=== PATIENT | female | born 1985 | race Hispanic/Latino ===

== ENCOUNTER 2019-06-17 08:58 | Day surgery (SDC) | payer OTHER ==
[2019-06-17 10:51] VITALS: BMI 47.2
--- NOTE | 2019-06-17 11:23 | ULT ---
US Biophysical Profile History: Twin gestation Comparison: Ultrasound biophysical profile May 2019 Findings: Biophysical profile score is 8/8 for both twins. Impression: Biophysical profile score of 8/8 for both twins. Heart rate is confirmed of both twins.
[2019-06-17] MEDS ORDERED: hydrALAZINE 20 MG/ML VIAL SLOW IVP PRN (11:24)
--- NOTE | 2019-06-17 11:40 | PDOC.EVN ---
Event Note - Event Note Event Note: PT with iup 35wks with di di twins with gestational dm controlled on medication here for scheduled bpp nst. NST A: base line 140s with mod ltv no decels no [id number]---jeiiooreigt nst B : base line 140s with mod ltv +accels 15X15 and neg accels and neg decels----reactive nst vitals: 101/63 P100 SAt 99% ra and RR20 NAD questions answered BPP reported 02/28 for both PT discharged home. Pt has f/u with Dr Wilson 06/24
[2019-06-17] MEDS ORDERED: FLU VACC QS2019-20(6MOS UP)/PF 60 MCG/0.5 ML SYRINGE IM ONE (11:45)
== END 2019-06-17 11:25 | disposition home or self-care (01) ==
LOC: L&D/OP 08:58
PROVIDERS: ATTEND Family Medicine
DX: O36.8331 Maternal care for abnormalities of the fetal heart rate or rhythm, third trimester, fetus 1 (principal); O24.414 Gestational diabetes mellitus in pregnancy, insulin controlled; O30.043 Twin pregnancy, dichorionic/diamniotic, third trimester; Z79.4 Long term (current) use of insulin; Z3A.35 35 weeks gestation of pregnancy
CPT/HCPCS: 59025; 76819; 99285

== ENCOUNTER 2019-06-21 09:07 | Day surgery (SDC) | payer OTHER ==
[2019-06-21 10:12] VITALS: BMI 47.2
--- NOTE | 2019-06-21 13:44 | ULT ---
OB ULTRASOUND: INDICATION: Gestational twins. Assess status. FINDINGS: Baby A is the presumed fetus and is transverse lie with head to the maternal left. Fetus A has a pos terior placenta and a heart rate recorded at 150 b.p.m. Fetus B is a variable lie. There is an anterior placenta. Fetus B heart rate is 135 b.p.m. Fetus A biophysical profile is 8/8. Fetus B biophysical profile is 8/8. Amniotic fluid volume: Membranes are identifiec consistent with a diamnotic dichorionic. The technologist states that the a mniotic fluid volume for each fetus appeared within normal range. Umbilical artery Doppler Twin A: At placenta resistive index 0.62 Mid cord resistive index 0.82 At fetus resistive index 0.80 Umbilical artery Doppler Twin B: At placenta resistive index 0.73 Mid cord resistive index 0.65 At fetus resistive index 0.66 Biometry and age measurements were not obtained. IMPRESSION: 1. Biophysical profile of each fetus is 8/8. 2. Umbilical artery Doppler measurements are noted above for each fetus. POS: OFF
--- NOTE | 2019-06-21 15:40 | PRG ---
DATE OF SERVICE: 06/21/2019 SUBJECTIVE: The patient is a 34-year-old female with an intrauterine at 35 weeks and 5 days with a di-di twin gestation, followed by Dr. Rafa Glaser. She was scheduled to appear for routine NST and BPP due to twin gestation. The patient's BPP was 8/8 for both baby A and baby B. heart tracing shows the fetus A with a baseline in the 140s with moderate long-term variability, positive 15 x 15 accelerations and baby B 130s with moderate long-term variability, positive 15 x 15 accelerations. Tocometer not showing any evidence of contractions. ASSESSMENT AND PLAN: The patient is a 34-year-old with a twin gestation at 34 weeks and 5 days with both baby A and baby B having reactive NSTs. The patient has been discharged home to follow up with her primary OB as scheduled. Job ID: [id number]
== END 2019-06-21 14:30 | disposition home or self-care (01) ==
LOC: L&D/OP 09:07
PROVIDERS: ATTEND Family Medicine
DX: O30.043 Twin pregnancy, dichorionic/diamniotic, third trimester (principal); Z3A.35 35 weeks gestation of pregnancy
CPT/HCPCS: 59025; 76815; 76819; 93975; 99282

== ENCOUNTER 2019-06-28 13:51 | Day surgery (SDC) | payer OTHER ==
[2019-06-28 14:38] VITALS: BP 125/79; TEMP 98.6; BMI 49.1
[2019-06-28] MEDS ORDERED: Betamet Acet/Betamet Na Ph 30 MG/5 ML VIAL ONE (14:48)
--- NOTE | 2019-06-28 16:11 | ULT ---
US Biophysical Profile: 06/28/2019 3:14 PM CLINICAL HISTORY: Twin intrauterine . Evaluate biophysical profile of both fetuses.. COMPARISON: None. FINDINGS: Fetus A: heart rate: 150 bpm. Biophysical profile: 8 of 8. The umbilical artery shows maintenance of diastolic flow within normal systolic to diastolic ratio. Fetus B: heart rate: 135 bpm. Biophysical profile: 8 of 8. The umbilical artery shows maintenance of diastolic flow within normal systolic to diastolic ratio. IMPRESSION: 1. Normal biophysical profile of both fetuses. 2. Normal umbilical artery ultrasound of both fetuses.
== END 2019-06-28 16:10 | disposition home or self-care (01) ==
LOC: L&D/OP 13:51
PROVIDERS: ATTEND Family Medicine
DX: O36.8392 Maternal care for abnormalities of the fetal heart rate or rhythm, unspecified trimester, fetus 2 (principal); O30.009 Twin pregnancy, unspecified number of placenta and unspecified number of amniotic sacs, unspecified trimester; Z3A.00 Weeks of gestation of pregnancy not specified
CPT/HCPCS: 76819; 93975; J0702

== ENCOUNTER 2019-06-29 13:44 | Day surgery (SDC) | payer OTHER ==
[2019-06-29] MEDS ORDERED: Betamet Acet/Betamet Na Ph 30 MG/5 ML VIAL ONE (13:49)
== END 2019-06-29 14:10 | disposition home health service (06) ==
LOC: L&D/OP 13:44
PROVIDERS: ATTEND Family Medicine
DX: Z29.8 Encounter for other specified prophylactic measures (principal); O30.009 Twin pregnancy, unspecified number of placenta and unspecified number of amniotic sacs, unspecified trimester; Z3A.00 Weeks of gestation of pregnancy not specified
CPT/HCPCS: J0702

== ENCOUNTER 2019-07-01 07:26 | Inpatient (IN) | payer OTHER ==
[2019-07-01] MEDS ORDERED: Ondansetron HCl/PF 4 MG/2 ML Vial IVP PRN (08:11)
[2019-07-01] MEDS ORDERED: Promethazine HCl 25 MG/ML VIAL IM PRN ×4 (08:11→15:29)
[2019-07-01] MEDS ORDERED: Ketorolac Tromethamine 30 MG/ML VIAL IVP PRN (08:11)
[2019-07-01] MEDS ORDERED: Naloxone HCl 0.4 mg/ml Vial IVP PRN ×2 (08:11)
[2019-07-01] MEDS ORDERED: Ondansetron PF 4 MG/2 ML Vial IVP PRN ×3 (08:11→15:29)
[2019-07-01] MEDS ORDERED: Promethazine HCl 25 MG SUPP PR PRN (08:11)
[2019-07-01] MEDS ORDERED: diphenhydrAMINE 50 MG/ML VIAL IVP PRN (08:11)
[2019-07-01] MEDS ORDERED: Promethazine HCl 25 MG/ML VIAL SLOW IVP PRN (08:11)
[2019-07-01] MEDS ORDERED: Naloxone HCl 0.4 mg/ml Vial IV PRN (08:11)
[2019-07-01] MEDS ORDERED: Communication Order-Pharmacy FS SCH (08:15)
[2019-07-01 08:23] VITALS: BMI 49.1
[2019-07-01] MEDS ORDERED: hydrALAZINE 20 MG/ML VIAL SLOW IVP PRN ×2 (09:01→15:29)
[2019-07-01] MEDS ORDERED: Azithromycin 500 MG in Sodium Chloride 0.9% 250 ML 250 ML IVPB SCH (09:01)
[2019-07-01] MEDS ORDERED: Bicitra 30 ML UDCUP PO SCH (09:01)
[2019-07-01] MEDS: Lactated Ringer's 1,000 ML IV SCH ×3 (09:28→18:45)
[2019-07-01 09:31] LABS: Hemoglobin 10.9 g/dL (12.0-16.0); Mean Corpuscular HGB CONC 32.4 g/dL (32.0-36.0); Mean Corpuscular Hemoglobin 27.9 pg (27.0-31.0); Mean Corpuscular Volume 86.1 fL (78.0-98.0); Mean Platelet Volume 10.4 fL (7.4-10.4); Platelet Count 222 thou/uL (130-400); RBC Distribution Width 13.6 % (11.5-14.5); Red Blood Cell (RBC) Count 3.92 mill/uL (4.20-5.40); White Blood Cell (WBC) Count 9.1 thou/uL (4.8-10.8)
[2019-07-01] MEDS ORDERED: MORPHINE 5 MG/10 ML PF VIAL ONE (09:51)
[2019-07-01] MEDS ORDERED: Oxytocin 10 UNITS/ML VIAL ONE ×2 (09:52→11:10)
[2019-07-01] MEDS ORDERED: Ondansetron PF 4 MG/2 ML Vial ONE (09:52)
[2019-07-01] MEDS ORDERED: PHENYLEPHRINE-NS 100 MCG/ML 10 ML SYRINGE ONE (09:52)
[2019-07-01] MEDS ORDERED: ePHEDrine/0.9% NaCl/PF SYRINGE 50 mg/10 ml ONE (09:52)
[2019-07-01 10:06] LABS: Syphilis Antibody Nonreactive (Nonreactive); Syphilis Antibody Index 0.03 S/CO (<1.00 Non-Reactive)
[2019-07-01 10:07] LABS: HBSAg Index 0.18 S/CO (0-0.99); Hep B Surf Ag Non-Reactive S/CO (NonReactive)
[2019-07-01] MEDS ORDERED: CEFAZOLIN 1 GM VIAL ONE (10:47)
[2019-07-01] MEDS ORDERED: CEFAZOLIN 3 GM in Sodium Chloride 0.9% 100 ML IVPB SCH (11:00)
--- NOTE | 2019-07-01 11:18 | PDOC.OPDEL ---
OB Operative/Delivery Note Delivery Dr/Surgeon: Dr. Glaser Assist: Dr. Gill Pre-Delivery Diagnosis: scheduled section, ruptured membrane Procedure/Post Delivery Dx: repeat low transverse CS Weeks gestation: 37 (37w1d) Anesthesia: spinal - Findings A Sex: female B Sex: female - Additional Findings/Plan Placenta delivered: manual removal findings: low transverse hysterotomy without extension Estimated blood loss: 800 mL Compilations/Other Findings: Preoperative Diagnosis: 1)Term intrauterine 2)Previous x2 3)Twin Gestation 4)Spontaneous Rupture of Membranes Postoperative Diagnosis: 1)Term intrauterine 2)Previous x2 3)Twin Gestation 4)Spontaneous Rupture of Membranes Anesthesia: spinal Indications: The patient is a 34 year old female at 37.1 weeks gestation with twin gestation who presents for spontaneous rupture of membranes, who had a repeat scheduled for today as well. Procedure in Detail: After risks, benefits, and alternatives were explained to the patient, she gave informed consent. Pre-operative antibiotics included Azithromycin 500mg IV, and Cefazolin 3 gram IV given intraop. The patient was taken to the operating room and spinal anesthesia was initiated. She was placed in the supine position with a left tilt and prepped and draped in usual sterile fashion. A Pfannenstiel incision was made with a scalpel and carried down to the level of the fascia which was sharply nicked. The fascial cut was extended bilaterally with Renae scissors. The inferior and superior edges of the cut fascial edges were elevated with Jairo clamps and the underlying rectus muscles were sharply and bluntly dissected free. The recti were divided digitally and retracted manually. The peritoneum was entered bluntly and retracted manually. Bladder blade was placed. A low transverse score was made with the scalpel and the uterus was entered in the midline bluntly. Clear fluid was seen. The hysterotomy was extended manually. Twin A was noted to be vertex and was easily delivered by fundal pressure. Mouth and nares were bulb suctioned. Cord clamped and cut and grossly normal female was handed to waiting nurse. Cord blood was obtained. A clamp was used for amniotomy on twin B and clear fluid was noted. Twin B was noted to be transverse and was easily delivered vertex by fundal pressure. Mouth and nares were bulb suctioned. Cord clamped and cut and grossly normal female was handed to waiting nurse. Cord blood was obtained. Placenta was manually extracted, found to be intact with 3 vessel cord on both and sent for pathology. The uterus was externalized and the endometrium was curetted with a dry lap. The bladder blade was replaced and the uterus was closed with a running locking #1 Monocryl followed by 3 figure of eight sutures with #1 monocryl for hemostasis. Following this hemostasis was noted. The abdomen was irrigated with saline and suctioned free of clots. Seprafilm was placed over the anterior aspect of the uterus. The uterus was internalized and the hysterotomy was again noted to be hemostatic. The peritoneum was closed with running, non-locking 3-0 vicryl suture. The fascia was closed with a running non-locking 0-PDS suture. The subcutaneous tissue was irrigated and there were a few bleeders that were cauterized. The subcutaneous layer was closed with interrupted 3-0 vicryl suture. The skin was approximated with sandoval and a Holli wound vac and pressure dressing were placed. All counts were correct. The patient tolerated the procedure well and was taken to the recovery room in stable condition. Time of delivery: 1028 and 1029 on 07/01/19 Estimated Blood Loss: 800 ml Complications: None Specimens: Cord blood sent to lab for blood type, grossly normal placenta for both infants sent for pathology Findings: Grossly normal female infant A and female B went to nursery Drains: White to gravity draining clear urine Post delivery plan: routine recovery
[2019-07-01] MEDS ORDERED: Misoprostol 200 MCG TAB ONE ×3 (12:32→12:49)
[2019-07-01] MEDS ORDERED: Carboprost 250 MCG/ML AMP ONE (12:32)
[2019-07-01] MEDS ORDERED: Methylergonovine 0.2 MG/ML VIAL ONE (12:32)
--- NOTE | 2019-07-01 13:04 | PDOC.EVN ---
Event Note - Event Note Event Note: Called to Recovery room to post /post operative bleeding. Pt had about 500cc clot in the bed. on bimanual about another 300cc evacuated. uterus became firm. 0.2mg methergine im and 1gm cytotec pr given. Vital signs wnl. not tachy with pulse in 80s. getting cbc and coags now. second line being placed. anderson in place. will type and cross four units with 2 to be given now. will watch closely. Bleeding much reduced at this time. Dr elizondo has been notified. addendum. pt remains stable with normal vitals, good urine output and minimal vaginal bleeding-normal lochia. PT transferred to post for routine care.
[2019-07-01 13:47] LABS: Hemoglobin 10.6 g/dL (12.0-16.0); Mean Corpuscular HGB CONC 32.6 g/dL (32.0-36.0); Mean Corpuscular Hemoglobin 28.5 pg (27.0-31.0); Mean Corpuscular Volume 87.3 fL (78.0-98.0); Mean Platelet Volume 10.2 fL (7.4-10.4); Platelet Count 238 thou/uL (130-400); RBC Distribution Width 13.7 % (11.5-14.5); Red Blood Cell (RBC) Count 3.72 mill/uL (4.20-5.40); White Blood Cell (WBC) Count 16.9 thou/uL (4.8-10.8)
[2019-07-01] MEDS ORDERED: Misoprostol 200 MCG TAB PR SCH (15:00)
[2019-07-01] MEDS ORDERED: Methylergonovine 0.2 MG/ML VIAL IM SCH (15:00)
[2019-07-01] MEDS ORDERED: NS / Oxytocin 40 units/1000ml 1,000 ML IV SCH (15:29)
[2019-07-01] MEDS ORDERED: Simethicone Chewable 80 MG TAB PO PRN (15:29)
[2019-07-01] MEDS ORDERED: Lanolin Ointment 7 GM TUBE TOP PRN (15:29)
[2019-07-01] MEDS ORDERED: Adacel (T-DAP) 0.5 ML SYRINGE IM ONE (15:29)
[2019-07-01] MEDS ORDERED: diphenhydrAMINE 25 MG CAP PO PRN (15:29)
[2019-07-01] MEDS ORDERED: Bisacodyl 10 MG SUPP PR PRN (15:29)
[2019-07-01] MEDS ORDERED: Sodium Chloride 0.9% 10 ML ONE ×2 (18:06→18:56)
[2019-07-01] MEDS: metroNIDAZOLE 500 MG in Premix Bag 1 BAG IVPB SCH (18:46)
[2019-07-01] MEDS: Ketorolac Tromethamine 30 MG/ML VIAL IVP SCH (18:59)
[2019-07-01] MEDS: Misoprostol 200 MCG TAB PO SCH (19:14)
[2019-07-01 19:51] LABS: PTT 27.8 SEC (22.9-36.1); Prothrombin Time 12.7 SEC (12.0-14.7)
[2019-07-01] MEDS ORDERED: Meperidine HCl/PF 25 MG/ML VIAL IM PRN (20:15)
[2019-07-01] MEDS: CEFAZOLIN 2 GM in Premix Bag 1 BAG IVPB SCH (20:42)
[2019-07-01] MEDS: Ferrous Sulfate 325 MG TAB PO SCH (22:24)
[2019-07-01] MEDS: Docusate Calcium (SURFAK) 240 MG CAP PO SCH (22:24)
[2019-07-02] MEDS: Ketorolac Tromethamine 30 MG/ML VIAL IVP SCH ×2 (01:03→06:13)
[2019-07-02] MEDS: Misoprostol 200 MCG TAB PO SCH (01:05)
[2019-07-02] MEDS: metroNIDAZOLE 500 MG in Premix Bag 1 BAG IVPB SCH ×3 (01:06→15:39)
[2019-07-02] MEDS: CEFAZOLIN 2 GM in Premix Bag 1 BAG IVPB SCH ×3 (03:31→18:21)
[2019-07-02 05:10] LABS: Hemoglobin 9.4 g/dL (12.0-16.0); Mean Corpuscular HGB CONC 34.3 g/dL (32.0-36.0); Mean Corpuscular Hemoglobin 29.2 pg (27.0-31.0); Mean Platelet Volume 9.3 fL (7.4-10.4); Platelet Count 180 thou/uL (130-400); RBC Distribution Width 13.9 % (11.5-14.5); Red Blood Cell (RBC) Count 3.22 mill/uL (4.20-5.40); White Blood Cell (WBC) Count 9.4 thou/uL (4.8-10.8)
[2019-07-02] MEDS ORDERED: Sodium Chloride 0.9% 10 ML ONE (05:29)
[2019-07-02] MEDS: HYDROcodone/Acetaminophen 5/325 mg Tablet PO PRN ×3 (06:11→14:30)
[2019-07-02] MEDS: Ferrous Sulfate 325 MG TAB PO SCH ×2 (08:54→21:50)
[2019-07-02] MEDS: Prenatal Vitamin 1 TAB PO SCH (08:54)
[2019-07-02] MEDS: Docusate Calcium (SURFAK) 240 MG CAP PO SCH ×2 (08:54→21:50)
[2019-07-02] MEDS: Ibuprofen 800 MG TAB PO SCH ×2 (14:30→21:50)
[2019-07-02] MEDS: Milk Of Magnesia 30 ML UDCUP PO PRN (15:40)
[2019-07-03] MEDS: metroNIDAZOLE 500 MG in Premix Bag 1 BAG IVPB SCH ×4 (00:23→23:18)
[2019-07-03] MEDS: HYDROcodone/Acetaminophen 5/325 mg Tablet PO PRN ×5 (00:30→23:11)
[2019-07-03] MEDS: CEFAZOLIN 2 GM in Premix Bag 1 BAG IVPB SCH ×3 (03:22→19:26)
[2019-07-03] MEDS: Ibuprofen 800 MG TAB PO SCH ×3 (06:22→21:41)
[2019-07-03] MEDS: Ferrous Sulfate 325 MG TAB PO SCH ×2 (08:30→21:41)
[2019-07-03] MEDS: Docusate Calcium (SURFAK) 240 MG CAP PO SCH ×2 (08:30→21:41)
[2019-07-03] MEDS: Prenatal Vitamin 1 TAB PO SCH (08:30)
[2019-07-03] MEDS: Milk Of Magnesia 30 ML UDCUP PO PRN (08:43)
[2019-07-03] MEDS ORDERED: Sodium Chloride 0.9% 10 ML ONE (13:12)
[2019-07-04] MEDS: CEFAZOLIN 2 GM in Premix Bag 1 BAG IVPB SCH ×2 (02:26→10:37)
[2019-07-04] MEDS: Ibuprofen 800 MG TAB PO SCH ×2 (05:18→14:52)
[2019-07-04] MEDS: HYDROcodone/Acetaminophen 5/325 mg Tablet PO PRN ×2 (06:28→12:05)
[2019-07-04] MEDS: Ferrous Sulfate 325 MG TAB PO SCH (10:22)
[2019-07-04] MEDS: Prenatal Vitamin 1 TAB PO SCH (10:22)
[2019-07-04] MEDS: Docusate Calcium (SURFAK) 240 MG CAP PO SCH (10:23)
[2019-07-04] MEDS: metroNIDAZOLE 500 MG in Premix Bag 1 BAG IVPB SCH (10:36)
[2019-07-04 12:03] VITALS: BP 137/82; TEMP 98.5
--- NOTE | 2019-07-06 03:02 | PQF ---
[employer] Techn[employer] Crystal Reports Winform ViewerJCKLAUDIAMOHINDER HECTOR BURTON MD [id number] CLINICAL DOCUMENTATION CLARIFICATION FORM: POST DISCHARGE Addendum to original discharge summary date: ____ Late entry note date: __ DATE: 07/06/2019 ATTN:HECTOR BURTON MD Please exercise your independent, professional judgment in responding to the clarification form. Clinical indicators are provided on the bottom of this form for your review Please check appropriate box(s): [ ] Acute blood loss anemia [ ] Post-op anemia related to acute blood loss [ ] Chronic Anemia [ ] Other diagnosis [ ] Unable to determine In addition, please specify: Present on Admission (POA): [ ] Yes [ ] No [ ] Unable to determine For continuity of documentation, please document condition throughout progress notes and discharge summary. Thank You. CLINICAL INDICATORS - SIGNS / SYMPTOMS / LABS HGB 9.4 on 07/02 - Documented in Laboratory HCT 27.4 on 07/02 - Documented in Laboratory Pulse rate 111 on 07/02 - Documented in Vital Signs BP 138/40 - Documented in Vital Signs In recovery room to / post operative bleeding - Documented in Event note Patient had 500cc Clot in the bed and bimanual about another 300cc evacuated - Documented in Vital Signs RISK FACTORS EBL - 800ml - Documented in OP note Twin gestation 37W - Documented in OP note Repeat low transverse CS - Documented in OP note TREATMENTS: Ferrous sulfate 325 mg - Medication report 2 units RBC [employer] Winform Viewer(This form is maintained as a part of the permanent medical record) 2014 [employer]. All Rights Reserved Wilian [not provided] MTDD
== END 2019-07-04 17:15 | disposition home or self-care (01) | DRG 787 ==
LOC: L&D 07:26 → 3SW 16:14
PROVIDERS: ADMIT Family Medicine; ATTEND Family Medicine
PROC: 10D00Z1 Extraction of Products of Conception, Low, Open Approach (ICD-10-PCS; principal; 2019-07-01)
DX: O36.5930 Maternal care for other known or suspected poor fetal growth, third trimester, not applicable or unspecified (principal); O72.1 Other immediate postpartum hemorrhage; O34.211 Maternal care for low transverse scar from previous cesarean delivery; O99.824 Streptococcus B carrier state complicating childbirth; O99.214 Obesity complicating childbirth; E66.01 Morbid (severe) obesity due to excess calories; O24.429 Gestational diabetes mellitus in childbirth, unspecified control; O30.003 Twin pregnancy, unspecified number of placenta and unspecified number of amniotic sacs, third trimester; Z3A.37 37 weeks gestation of pregnancy; Z37.2 Twins, both liveborn
CPT/HCPCS: 36415; 36430; 51702; 85027; 85384; 85610; 85730; 86780; 86850; 86900; 86901; 87340; 88307; 99285; J0456; J0690; J1885; J2210; J2274; J2405; J2590; J3490; J7050; P9016

== ENCOUNTER 2019-07-06 02:40 | Emergency (ER) | payer OTHER ==
[2019-07-06] MEDS ORDERED: Ketorolac Tromethamine 30 MG/ML VIAL ONE (03:06)
== END 2019-07-06 04:11 | disposition home or self-care (01) ==
LOC: ERS 02:40
DX: O90.89 Other complications of the puerperium, not elsewhere classified (principal); F41.9 Anxiety disorder, unspecified; F32.9 Major depressive disorder, single episode, unspecified
CPT/HCPCS: 96372; 99283; J1885

== ENCOUNTER 2019-07-25 21:51 | Emergency (ER) | payer OTHER ==
[2019-07-25 22:18] LABS: #Basophils 0.1 thou/uL (0.0-0.2); #Eosinphils 0.6 thou/uL (0.0-0.7); #Lymphocytes 2.8 thou/uL (1.20-3.40); #Monocytes 0.5 thou/uL (0.11-0.59); #Neutrophils 5.4 thou/uL (1.40-6.50); %Basophils 0.7 % (0.0-1.0); %Eosinophils 6.1 % (0.0-10.0); %Lymphocytes 29.5 % (21.0-51.0); %Monocytes 5.4 % (0.0-10.0); %Neutrophils 58.3 % (42.0-75.0); Hemoglobin 12.3 g/dL (12.0-16.0); Mean Corpuscular HGB CONC 32.4 g/dL (32.0-36.0); Mean Corpuscular Hemoglobin 28.1 pg (27.0-31.0); Mean Corpuscular Volume 86.6 fL (78.0-98.0); Mean Platelet Volume 8.7 fL (7.4-10.4); Platelet Count 345 thou/uL (130-400); RBC Distribution Width 13.7 % (11.5-14.5); Red Blood Cell (RBC) Count 4.38 mill/uL (4.20-5.40); White Blood Cell (WBC) Count 9.3 thou/uL (4.8-10.8)
[2019-07-25 22:29] LABS: Bilirubin Negative (Negative); Blood, Urine 3+ (Negative); Clarity Clear (Clear); Glucose, Urine (Dipstick) Normal (Negative); Leukocyte 250 Leu/uL (Negative); Nitrite Negative (Negative); Protein, Urine (Dipstick) 20 mg/dL (Neg-Trace); RBC/HPF Greater than 50 HPF (0-3); Squamous Epithelial 0-3 HPF (0-3); Urobilinogen Normal mg/dL (Less than 2)
[2019-07-25 22:32] LABS: Bacteria/HPF 1+ HPF (None Seen)
[2019-07-25 22:38] LABS: ALT (SGPT) 23 U/L (8-55); AST (SGOT) 17 U/L (5-34); Albumin 4.3 g/dL (3.5-5.0); Alkaline Phosphatase 123 U/L (40-110); Anion Gap 10 mmol/L (10-20); BUN (Urea Nitrogen) 15 mg/dL (7.0-18.7); Bilirubin, Total 0.2 mg/dL (0.2-1.2); Calc. Creatinine Clearance 0 mL/min (70-130); Calcium 9.4 mg/dL (7.8-10.44); Carbon Dioxide 30 mmol/L (22-29); Chloride 104 mmol/L (98-107); Estimated GFR-MDRD 86; Globulin 3.1 g/dL (2.4-3.5); Glucose 98 mg/dL (70-105); Lipase 39 U/L (8-78); Potassium 3.4 mmol/L (3.5-5.1); Protein, Total 7.4 g/dL (6.0-8.3); Sodium 141 mmol/L (136-145)
[2019-07-25] MEDS ORDERED: Ondansetron ODT 4 MG TAB ONE (23:20)
[2019-07-25] MEDS ORDERED: Mag-Al 1200 mg/1200 mg/30 ML UDCUP ONE (23:20)
[2019-07-25] MEDS ORDERED: Lidocaine Viscous Sol 2% 15 ml UD Cup ONE (23:20)
== END 2019-07-25 23:55 | disposition home or self-care (01) ==
LOC: ERS 21:51
DX: K64.4 Residual hemorrhoidal skin tags (principal); K59.00 Constipation, unspecified; L30.4 Erythema intertrigo; F41.9 Anxiety disorder, unspecified; F32.9 Major depressive disorder, single episode, unspecified; F17.210 Nicotine dependence, cigarettes, uncomplicated
CPT/HCPCS: 36415; 80053; 81003; 81015; 83605; 83690; 85025; 99284; Q0162

== ENCOUNTER 2019-10-06 16:20 | Emergency (ER) | payer OTHER ==
[2019-10-06 16:44] LABS: #Basophils 0.1 thou/uL (0.0-0.2); #Eosinphils 0.3 thou/uL (0.0-0.7); #Lymphocytes 2.6 thou/uL (1.20-3.40); #Monocytes 0.6 thou/uL (0.11-0.59); #Neutrophils 7.5 thou/uL (1.40-6.50); %Basophils 0.8 % (0.0-1.0); %Eosinophils 2.6 % (0.0-10.0); %Lymphocytes 23.5 % (21.0-51.0); %Monocytes 5.3 % (0.0-10.0); %Neutrophils 67.8 % (42.0-75.0); Hemoglobin 13.7 g/dL (12.0-16.0); Mean Corpuscular HGB CONC 32.8 g/dL (32.0-36.0); Mean Corpuscular Hemoglobin 28.5 pg (27.0-31.0); Mean Corpuscular Volume 86.7 fL (78.0-98.0); Mean Platelet Volume 8.4 fL (7.4-10.4); Platelet Count 376 thou/uL (130-400); RBC Distribution Width 13.7 % (11.5-14.5); Red Blood Cell (RBC) Count 4.81 mill/uL (4.20-5.40); White Blood Cell (WBC) Count 11.1 thou/uL (4.8-10.8)
[2019-10-06] MEDS ORDERED: Sucralfate 1 GM/10 ML UDCUP ONE (17:07)
[2019-10-06] MEDS ORDERED: Famotidine 20 MG TAB ONE (17:07)
[2019-10-06 17:14] LABS: ALT (SGPT) 22 U/L (8-55); AST (SGOT) 11 U/L (5-34); Albumin 4.6 g/dL (3.5-5.0); Alkaline Phosphatase 101 U/L (40-110); Anion Gap 13 mmol/L (10-20); BUN (Urea Nitrogen) 12 mg/dL (7.0-18.7); Bilirubin, Total 0.2 mg/dL (0.2-1.2); Calc. Creatinine Clearance 0 mL/min (70-130); Calcium 9.4 mg/dL (7.8-10.44); Carbon Dioxide 24 mmol/L (22-29); Chloride 110 mmol/L (98-107); Estimated GFR-MDRD Greater than 90; Globulin 3.1 g/dL (2.4-3.5); Glucose 95 mg/dL (70-105); Potassium 3.5 mmol/L (3.5-5.1); Protein, Total 7.7 g/dL (6.0-8.3); Sodium 143 mmol/L (136-145)
--- NOTE | 2019-10-07 07:42 | RAD ---
Portable frontal chest radiograph: 10/06/2019 COMPARISON: 04/10/2018 HISTORY: Chest pain FINDINGS: Lungs are clear. Heart and mediastinal contours appear within normal limits. IMPRESSION: No acute findings.
== END 2019-10-06 17:42 | disposition home or self-care (01) ==
LOC: ERS 16:20
DX: K21.9 Gastro-esophageal reflux disease without esophagitis (principal); R07.9 Chest pain, unspecified; F41.9 Anxiety disorder, unspecified; F32.9 Major depressive disorder, single episode, unspecified; F17.210 Nicotine dependence, cigarettes, uncomplicated; Z79.899 Other long term (current) drug therapy
CPT/HCPCS: 71045; 80053; 84484; 85025; 93005

== ENCOUNTER 2019-12-20 11:06 | Outpatient (CLI) | payer MEDICAID, OTHER ==
--- NOTE | 2019-12-20 15:46 | ULT ---
TRANSABDOMINAL AND TRANSVAGINAL PELVIC ULTRASOUND WITH OWUSU SCALE AND COLOR FLOW AND SPECTRAL DOPPLER IMAGING: HISTORY: A 34-year-old female with pelvic pain. FINDINGS: The uterus measures 8.7 x 4.1 x 5.6 cm with a left frontal mass measuring 1.5 x 1 x 1.7 cm consistent with fibroid. No endometrial fluid is seen. The endometrium measures 7 mm in thickness. The right ovary measures 2.8 x 2.7 x 2.6 cm and the left ovary measures 2.9 x 3.4 x 2.6 cm. There is a 2.3 x 2.2 x 3.2 cm cyst with a cyst which appears septated with a smaller internal cyst or a small internal cyst measuring about 7 mm. Flow is demonstrated to both ovaries. No free fluid is seen. IMPRESSION: 1. Uterine fibroid. 2. Probably septated versus cyst within cyst arising from the left ovary measuring 2.3 x 2 x 3.2 cm. A followup exam is recommended in 6-8 weeks. Correlation with serum beta HCG level would also be h elpful to exclude the possibility of ectopic . POS: TERESA
== END 2019-12-20 11:07 | disposition home or self-care (01) ==
LOC: BICULT 11:06
PROVIDERS: ATTEND Nurse Practitioner Women's Health
DX: R10.2 Pelvic and perineal pain (principal); D25.9 Leiomyoma of uterus, unspecified
CPT/HCPCS: 76856

== ENCOUNTER 2020-02-16 04:43 | Emergency (ER) | payer OTHER, SELFPAY ==
[2020-02-16 05:35] LABS: Bacteria/HPF None Seen HPF (None Seen); Bilirubin Negative (Negative); Blood, Urine 3+ (Negative); Clarity Extra Turbid (Clear); Glucose, Urine (Dipstick) Normal (Negative); Ketone, Urine Trace mg/dL (Negative); Leukocyte 75 Leu/uL (Negative); Nitrite Negative (Negative); Pregnancy Test - Urine (BHCG) Negative (Negative); Protein, Urine (Dipstick) 70 mg/dL (Neg-Trace); RBC/HPF Greater than 50 HPF (0-3); Specific Gravity, Urine 1.021 (1.002-1.036); Squamous Epithelial None Seen HPF (0-3); Urobilinogen Normal mg/dL (Less than 2); pH, Urine 6.5 (5.0-9.0)
[2020-02-16 05:36] LABS: Pregu Control Background? CLEAR/WHITE (CLR/WHITE); Pregu Control Bar Appear? YES (CONTROL BAR); Specific Gravity 1.021 (1.002-1.036)
== END 2020-02-16 05:50 | disposition home or self-care (01) ==
LOC: ERS 04:43
DX: N93.9 Abnormal uterine and vaginal bleeding, unspecified (principal); F41.9 Anxiety disorder, unspecified; F32.9 Major depressive disorder, single episode, unspecified; F17.210 Nicotine dependence, cigarettes, uncomplicated; Z79.899 Other long term (current) drug therapy
CPT/HCPCS: 81003; 81015; 81025; 99284

== ENCOUNTER 2020-02-23 14:28 | Emergency (ER) | payer SELFPAY ==
[2020-02-23 15:13] LABS: #Basophils 0.1 thou/uL (0.0-0.2); #Eosinphils 0.2 thou/uL (0.0-0.7); #Lymphocytes 2.7 thou/uL (1.20-3.40); #Monocytes 0.5 thou/uL (0.11-0.59); #Neutrophils 5.5 thou/uL (1.40-6.50); %Basophils 0.8 % (0.0-1.0); %Eosinophils 2.4 % (0.0-10.0); %Lymphocytes 30.2 % (21.0-51.0); %Monocytes 5.3 % (0.0-10.0); %Neutrophils 61.3 % (42.0-75.0); Hemoglobin 14.4 g/dL (12.0-16.0); Mean Corpuscular HGB CONC 33.7 g/dL (32.0-36.0); Mean Corpuscular Hemoglobin 29.7 pg (27.0-31.0); Mean Platelet Volume 8.6 fL (7.4-10.4); Platelet Count 335 thou/uL (130-400); RBC Distribution Width 13.7 % (11.5-14.5); Red Blood Cell (RBC) Count 4.85 mill/uL (4.20-5.40); White Blood Cell (WBC) Count 9.1 thou/uL (4.8-10.8)
[2020-02-23 15:46] LABS: BHCG - Serum Negative (NEGATIVE); Pregs Control Background? CLEAR/WHITE (CLR/WHITE); Pregs Control Bar Appear? YES (CONTROL BAR)
[2020-02-23 17:52] LABS: ALT (SGPT) 18 U/L (8-55); AST (SGOT) 14 U/L (5-34); Albumin 4.6 g/dL (3.5-5.0); Alkaline Phosphatase 97 U/L (40-110); Anion Gap 13 mmol/L (10-20); BUN (Urea Nitrogen) 7 mg/dL (7.0-18.7); Bilirubin, Total 0.3 mg/dL (0.2-1.2); Calc. Creatinine Clearance 0 mL/min (70-130); Calcium 9.4 mg/dL (7.8-10.44); Carbon Dioxide 21 mmol/L (22-29); Chloride 109 mmol/L (98-107); Estimated GFR-MDRD Greater than 90; Globulin 2.6 g/dL (2.4-3.5); Glucose 91 mg/dL (70-105); Potassium 4.1 mmol/L (3.5-5.1); Protein, Total 7.2 g/dL (6.0-8.3); Sodium 139 mmol/L (136-145)
[2020-02-23 17:52] LABS: Bacteria/HPF None Seen HPF (None Seen); Bilirubin Negative (Negative); Blood, Urine 3+ (Negative); Clarity Clear (Clear); Glucose, Urine (Dipstick) Normal (Negative); Ketone, Urine Negative (Negative); Leukocyte Negative Leu/uL (Negative); Nitrite Negative (Negative); Protein, Urine (Dipstick) Negative (Neg-Trace); Specific Gravity, Urine 1.012 (1.002-1.036); Urobilinogen Normal mg/dL (Less than 2); WBC/HPF 0-3 HPF (0-3)
[2020-02-25 20:59] LABS: Chlamydia by PCR Not Detected (NotDetected); GC by PCR Not Detected (NotDetected)
== END 2020-02-23 18:05 | disposition home or self-care (01) ==
LOC: ERS 14:28
DX: N93.9 Abnormal uterine and vaginal bleeding, unspecified (principal); F41.9 Anxiety disorder, unspecified; F32.9 Major depressive disorder, single episode, unspecified; F17.210 Nicotine dependence, cigarettes, uncomplicated; Z79.899 Other long term (current) drug therapy
CPT/HCPCS: 36415; 80053; 81003; 81015; 84703; 85025; 87480; 87491; 87510; 87591; 87660; 99284

== ENCOUNTER 2020-04-19 14:15 | Emergency (ER) | payer SELFPAY ==
[2020-04-19] MEDS ORDERED: Ketorolac Tromethamine 30 MG/ML VIAL ONE (15:02)
[2020-04-19 15:29] LABS: Bilirubin Negative (Negative); Blood, Urine Negative (Negative); Clarity Clear (Clear); Glucose, Urine (Dipstick) Normal (Negative); Ketone, Urine Negative (Negative); Leukocyte Negative Leu/uL (Negative); Nitrite Negative (Negative); Protein, Urine (Dipstick) Negative (Neg-Trace); Specific Gravity, Urine 1.029 (1.002-1.036); Urobilinogen Normal mg/dL (Less than 2)
[2020-04-19 15:31] LABS: BHCG - Serum Negative (NEGATIVE); Pregs Control Background? CLEAR/WHITE (CLR/WHITE); Pregs Control Bar Appear? YES (CONTROL BAR)
--- NOTE | 2020-04-19 16:03 | RAD ---
Chest AP view INDICATION: Low back pain and chest pain COMPARISON: Prior exam dated October 06, 2019 FINDINGS: Lungs: The lungs are clear Cardiac silhouette: The cardiomediastinal silhouette appears within normal limits. Pulmonary vasculature: Normal Pleural spaces: No pleural effusion or pneumothorax is demonstrated. Upper abdomen: No abnormality seen. Osseous structures: No acute osseous abnormality. Additional findings: None. IMPRESSION: No acute cardiopulmonary abnormality.
--- NOTE | 2020-04-19 16:03 | RAD ---
XR Lumbar Spine 2 Or 3 View: 04/19/2020 3:55 PM INDICATION: Low back pain COMPARISON: None FINDINGS: Fracture: None. Alignment: Spinal alignment appears within normal limits. Degenerative Change: No appreciable. Bone Mineralization:Normal Soft tissues: Cholecystectomy clips in the right upper quadrant of the abdomen. IMPRESSION: Normal lumbar radiographs.
== END 2020-04-19 16:25 | disposition home or self-care (01) ==
LOC: ERS 14:15
DX: M54.5 Low back pain (principal); R60.0 Localized edema; F32.9 Major depressive disorder, single episode, unspecified; F41.9 Anxiety disorder, unspecified; F17.210 Nicotine dependence, cigarettes, uncomplicated
CPT/HCPCS: 36415; 71045; 72100; 81003; 83880; 84703; 87086; 96372; J1885

== ENCOUNTER 2020-07-29 18:17 | Emergency (ER) | payer SELFPAY ==
[2020-07-29] MEDS ORDERED: Ketorolac Tromethamine 30 MG/ML VIAL ONE (19:01)
[2020-07-29 19:06] LABS: #Basophils 0.1 thou/uL (0.0-0.2); #Eosinphils 0.3 thou/uL (0.0-0.7); #Lymphocytes 3.2 thou/uL (1.20-3.40); #Monocytes 0.7 thou/uL (0.11-0.59); #Neutrophils 6.9 thou/uL (1.40-6.50); %Basophils 0.8 % (0.0-1.0); %Eosinophils 3.1 % (0.0-10.0); %Lymphocytes 28.5 % (21.0-51.0); %Monocytes 5.8 % (0.0-10.0); %Neutrophils 61.9 % (42.0-75.0); Hemoglobin 15.9 g/dL (12.0-16.0); Mean Corpuscular HGB CONC 33.3 g/dL (32.0-36.0); Mean Corpuscular Hemoglobin 30.2 pg (27.0-31.0); Mean Corpuscular Volume 90.7 fL (78.0-98.0); Mean Platelet Volume 8.1 fL (7.4-10.4); Platelet Count 355 thou/uL (130-400); RBC Distribution Width 12.8 % (11.5-14.5); Red Blood Cell (RBC) Count 5.26 mill/uL (4.20-5.40); White Blood Cell (WBC) Count 11.2 thou/uL (4.8-10.8)
[2020-07-29 19:15] LABS: BHCG - Serum Negative (NEGATIVE); Pregs Control Background? CLEAR/WHITE (CLR/WHITE); Pregs Control Bar Appear? YES (CONTROL BAR)
--- NOTE | 2020-07-29 19:21 | RAD ---
Exam: Chest one view HISTORY:Left lower chest pain, x3 days Comparison: 04/19/2020 FINDINGS: Cardiac silhouette: Normal Aorta: Unremarkable Pulmonary vessels: Normal Costophrenic angles: Clear LUNGS: No masses or consolidation. Pneumothorax: None Osseous abnormalities: None IMPRESSION: No acute cardiopulmonary process.
[2020-07-29 19:23] LABS: ALT (SGPT) 30 U/L (8-55); AST (SGOT) 25 U/L (5-34); Albumin 4.3 g/dL (3.5-5.0); Alkaline Phosphatase 115 U/L (40-110); Anion Gap 16 mmol/L (10-20); BUN (Urea Nitrogen) 14 mg/dL (7.0-18.7); Bilirubin, Total 0.3 mg/dL (0.2-1.2); Calc. Creatinine Clearance 0 mL/min (70-130); Calcium 8.9 mg/dL (7.8-10.44); Carbon Dioxide 22 mmol/L (22-29); Chloride 106 mmol/L (98-107); Globulin 3.6 g/dL (2.4-3.5); Glucose 149 mg/dL (70-105); Lipase 44 U/L (8-78); Protein, Total 7.9 g/dL (6.0-8.3); Sodium 140 mmol/L (136-145)
[2020-07-29 19:31] LABS: Bilirubin Negative (Negative); Blood, Urine Negative (Negative); Clarity Clear (Clear); Glucose, Urine (Dipstick) Normal (Negative); Ketone, Urine Negative (Negative); Leukocyte Negative Leu/uL (Negative); Nitrite Negative (Negative); Protein, Urine (Dipstick) 10 mg/dL (Neg-Trace); Specific Gravity, Urine 1.026 (1.002-1.036); Urobilinogen Normal mg/dL (Less than 2)
== END 2020-07-29 20:42 | disposition home or self-care (01) ==
LOC: ERS 18:17
DX: R10.12 Left upper quadrant pain (principal); M54.9 Dorsalgia, unspecified; I10 Essential (primary) hypertension; F17.210 Nicotine dependence, cigarettes, uncomplicated
CPT/HCPCS: 71045; 80053; 81003; 83690; 84703; 85025; 96374; J1885

== ENCOUNTER 2020-07-31 14:41 | Emergency (ER) | payer SELFPAY ==
[~2020-07-31 14:41] MED LIST: Iopamidol-370 76% 500 ML 1 ML ONE
[2020-07-31 15:19] LABS: #Basophils 0.2 thou/uL (0.0-0.2); #Eosinphils 0.2 thou/uL (0.0-0.7); #Lymphocytes 3.1 thou/uL (1.20-3.40); #Monocytes 0.5 thou/uL (0.11-0.59); #Neutrophils 8.7 thou/uL (1.40-6.50); %Basophils 1.3 % (0.0-1.0); %Eosinophils 1.3 % (0.0-10.0); %Lymphocytes 24.7 % (21.0-51.0); %Neutrophils 68.8 % (42.0-75.0); Hemoglobin 15.5 g/dL (12.0-16.0); Mean Corpuscular HGB CONC 33.7 g/dL (32.0-36.0); Mean Corpuscular Hemoglobin 30.3 pg (27.0-31.0); Mean Corpuscular Volume 89.9 fL (78.0-98.0); Mean Platelet Volume 7.8 fL (7.4-10.4); Platelet Count 365 thou/uL (130-400); RBC Distribution Width 12.8 % (11.5-14.5); Red Blood Cell (RBC) Count 5.11 mill/uL (4.20-5.40); White Blood Cell (WBC) Count 12.6 thou/uL (4.8-10.8)
[2020-07-31 15:39] LABS: BHCG - Serum Negative (NEGATIVE); Pregs Control Background? CLEAR/WHITE (CLR/WHITE); Pregs Control Bar Appear? YES (CONTROL BAR)
[2020-07-31 15:41] LABS: ALT (SGPT) 27 U/L (8-55); AST (SGOT) 13 U/L (5-34); Albumin 4.6 g/dL (3.5-5.0); Alkaline Phosphatase 116 U/L (40-110); Anion Gap 15 mmol/L (10-20); BUN (Urea Nitrogen) 8 mg/dL (7.0-18.7); Bilirubin, Total 0.5 mg/dL (0.2-1.2); Calc. Creatinine Clearance 0 mL/min (70-130); Calcium 9.2 mg/dL (7.8-10.44); Carbon Dioxide 22 mmol/L (22-29); Chloride 106 mmol/L (98-107); Globulin 3.4 g/dL (2.4-3.5); Glucose 109 mg/dL (70-105); Lipase 29 U/L (8-78); Potassium 3.6 mmol/L (3.5-5.1); Sodium 139 mmol/L (136-145)
--- NOTE | 2020-07-31 16:06 | CT ---
CT ABDOMEN AND PELVIS WITH IV CONTRAST: 07/31/20 HISTORY: Abdominal pain. COMPARISON: Noncontrasted exam of 08/03/16. FINDINGS: The lung bases are clear. The patient is post cholecystectomy. The liver, spleen, pancreas, adrenal g lands and kidneys are normal. No free air, free fluid, or lymphadenopathy is seen in the abdomen or pelvis. The small bowel loops are not abnormally dilated. A normal appearing appendix is present. The uterus and ovaries are present. There is a 2.5 cm left adnexal cystic mass likely ovarian. A tiny fa t containing umbilical hernia is present. No acute osseous abnormalities are seen. The aorta is of no rmal caliber. IMPRESSION: No acute process. POS: MOO
[2020-07-31 16:42] LABS: Bilirubin Negative (Negative); Blood, Urine Negative (Negative); Clarity Clear (Clear); Glucose, Urine (Dipstick) Normal (Negative); Ketone, Urine Negative (Negative); Leukocyte Negative Leu/uL (Negative); Nitrite Negative (Negative); Protein, Urine (Dipstick) Negative (Neg-Trace); Specific Gravity, Urine 1.022 (1.002-1.036); Urobilinogen Normal mg/dL (Less than 2); pH, Urine 5.5 (5.0-9.0)
[2020-07-31] MEDS ORDERED: Ondansetron PF 4 MG/2 ML Vial ONE (16:45)
[2020-07-31] MEDS ORDERED: Mag-Al 1200 mg/1200 mg/30 ML UDCUP ONE (16:45)
[2020-07-31] MEDS ORDERED: Lidocaine Viscous Sol 2% 15 ml UD Cup ONE (16:48)
== END 2020-07-31 19:00 | disposition home or self-care (01) ==
LOC: ERS 14:41
DX: R10.12 Left upper quadrant pain (principal); F17.210 Nicotine dependence, cigarettes, uncomplicated
CPT/HCPCS: 36415; 74177; 80053; 81003; 83690; 84703; 85025; 96374; J2405; Q9967

== ENCOUNTER 2020-08-18 12:06 | Emergency (ER) | payer SELFPAY ==
[2020-08-18 13:03] LABS: Bilirubin Negative (Negative); Blood, Urine Negative (Negative); Clarity Clear (Clear); Glucose, Urine (Dipstick) Normal (Negative); Ketone, Urine Negative (Negative); Leukocyte Negative Leu/uL (Negative); Nitrite Negative (Negative); Protein, Urine (Dipstick) Negative (Neg-Trace); Specific Gravity, Urine 1.005 (1.002-1.036); Urobilinogen Normal mg/dL (Less than 2); pH, Urine 6.5 (5.0-9.0)
[2020-08-18 13:04] LABS: Pregnancy Test - Urine (BHCG) Negative (Negative); Pregu Control Background? CLEAR/WHITE (CLR/WHITE); Pregu Control Bar Appear? YES (CONTROL BAR); Specific Gravity 1.005 (1.002-1.036)
[2020-08-18 13:06] LABS: #Eosinphils 0.1 thou/uL (0.0-0.7); #Lymphocytes 2.5 thou/uL (1.20-3.40); #Monocytes 0.5 thou/uL (0.11-0.59); #Neutrophils 5.5 thou/uL (1.40-6.50); %Basophils 0.5 % (0.0-1.0); %Eosinophils 1.7 % (0.0-10.0); %Lymphocytes 28.9 % (21.0-51.0); %Monocytes 5.3 % (0.0-10.0); %Neutrophils 63.6 % (42.0-75.0); Mean Corpuscular HGB CONC 33.4 g/dL (32.0-36.0); Mean Corpuscular Volume 89.8 fL (78.0-98.0); Mean Platelet Volume 8.4 fL (7.4-10.4); Platelet Count 302 thou/uL (130-400); RBC Distribution Width 12.5 % (11.5-14.5); Red Blood Cell (RBC) Count 4.98 mill/uL (4.20-5.40); White Blood Cell (WBC) Count 8.6 thou/uL (4.8-10.8)
[2020-08-18 13:31] LABS: ALT (SGPT) 22 U/L (8-55); AST (SGOT) 15 U/L (5-34); Albumin 4.7 g/dL (3.5-5.0); Alkaline Phosphatase 104 U/L (40-110); Anion Gap 13 mmol/L (10-20); BUN (Urea Nitrogen) 8 mg/dL (7.0-18.7); Bilirubin, Total 0.6 mg/dL (0.2-1.2); Calc. Creatinine Clearance 0 mL/min (70-130); Calcium 9.7 mg/dL (7.8-10.44); Carbon Dioxide 28 mmol/L (22-29); Chloride 104 mmol/L (98-107); Globulin 3.2 g/dL (2.4-3.5); Glucose 101 mg/dL (70-105); Lipase 37 U/L (8-78); Potassium 3.5 mmol/L (3.5-5.1); Protein, Total 7.9 g/dL (6.0-8.3); Sodium 141 mmol/L (136-145)
[2020-08-18] MEDS ORDERED: Lidocaine Viscous Sol 2% 15 ml UD Cup ONE (13:42)
[2020-08-18] MEDS ORDERED: Famotidine/PF 20 mg/2ml Vial ONE (13:42)
[2020-08-18] MEDS ORDERED: Mag-Al 1200 mg/1200 mg/30 ML UDCUP ONE (13:42)
[2020-08-18] MEDS ORDERED: Famotidine 20 MG TAB ONE (14:00)
== END 2020-08-18 14:35 | disposition home or self-care (01) ==
LOC: ERS 12:06
DX: R10.13 Epigastric pain (principal); F17.210 Nicotine dependence, cigarettes, uncomplicated
CPT/HCPCS: 36415; 80053; 81003; 81025; 83690; 85025; 99284; S0028

== ENCOUNTER 2020-09-29 17:52 | Emergency (ER) | payer SELFPAY | END 2020-09-29 19:08 | disposition home or self-care (01) | LOC: ERS 17:52 | DX: B37.2 Candidiasis of skin and nail (principal); Z79.899 Other long term (current) drug therapy; F17.210 Nicotine dependence, cigarettes, uncomplicated | CPT/HCPCS: 99282 ==

== ENCOUNTER 2021-05-31 02:48 | Emergency (ER) | payer SELFPAY ==
[2021-05-31 03:32] LABS: #Basophils 0.1 thou/uL (0.0-0.2); #Eosinphils 0.2 thou/uL (0.0-0.7); #Lymphocytes 3.2 thou/uL (1.20-3.40); #Monocytes 0.8 thou/uL (0.11-0.59); #Neutrophils 6.7 thou/uL (1.40-6.50); %Basophils 0.6 % (0.0-1.0); %Lymphocytes 29.3 % (21.0-51.0); %Monocytes 7.2 % (0.0-10.0); %Neutrophils 60.9 % (42.0-75.0); Hemoglobin 14.9 g/dL (12.0-16.0); Mean Corpuscular HGB CONC 34.1 g/dL (32.0-36.0); Mean Corpuscular Hemoglobin 31.6 pg (27.0-31.0); Mean Corpuscular Volume 92.8 fL (78.0-98.0); Mean Platelet Volume 7.9 fL (7.4-10.4); Platelet Count 274 thou/uL (130-400); RBC Distribution Width 12.4 % (11.5-14.5); Red Blood Cell (RBC) Count 4.72 mill/uL (4.20-5.40)
[2021-05-31 03:50] LABS: BHCG - Serum Negative (NEGATIVE); Pregs Control Background? CLEAR/WHITE (CLR/WHITE); Pregs Control Bar Appear? YES (CONTROL BAR)
[2021-05-31 03:53] LABS: ALT (SGPT) 21 U/L (8-55); AST (SGOT) 13 U/L (5-34); Albumin 3.9 g/dL (3.5-5.0); Alkaline Phosphatase 80 U/L (40-110); Anion Gap 11 mmol/L (10-20); BUN (Urea Nitrogen) 12 mg/dL (7.0-18.7); Bilirubin, Total 0.4 mg/dL (0.2-1.2); Calc. Creatinine Clearance 0 mL/min (70-130); Calcium 8.8 mg/dL (7.8-10.44); Carbon Dioxide 24 mmol/L (22-29); Chloride 109 mmol/L (98-107); Globulin 2.6 g/dL (2.4-3.5); Glucose 114 mg/dL (70-105); Lipase 48 U/L (8-78); Potassium 4.1 mmol/L (3.5-5.1); Protein, Total 6.5 g/dL (6.0-8.3); Sodium 140 mmol/L (136-145)
[2021-05-31] MEDS ORDERED: Ondansetron ODT 4 MG TAB ONE (04:02)
[2021-05-31 04:56] LABS: Bilirubin Negative (Negative); Blood, Urine Negative (Negative); Clarity Clear (Clear); Glucose, Urine (Dipstick) Normal (Negative); Ketone, Urine Negative (Negative); Leukocyte Negative Leu/uL (Negative); Nitrite Negative (Negative); Protein, Urine (Dipstick) Negative (Neg-Trace); Specific Gravity, Urine 1.025 (1.002-1.036); Urobilinogen Normal mg/dL (Less than 2); pH, Urine 5.5 (5.0-9.0)
[2021-05-31] MEDS ORDERED: Lidocaine Viscous Sol 2% 15 ml UD Cup ONE (05:04)
[2021-05-31] MEDS ORDERED: Milk Of Magnesia 30 ML UDCUP ONE (05:04)
[2021-06-05 09:20] LABS: Chlamydia by PCR Not Detected (NotDetected); GC by PCR Not Detected (NotDetected)
== END 2021-05-31 05:41 | disposition home or self-care (01) ==
LOC: ERS 02:48
DX: R10.13 Epigastric pain (principal); R11.2 Nausea with vomiting, unspecified; F17.210 Nicotine dependence, cigarettes, uncomplicated
CPT/HCPCS: 36415; 80053; 81003; 83690; 84703; 85025; 87480; 87491; 87510; 87591; 87660; 99284; Q0162

== ENCOUNTER 2021-06-14 19:35 | Emergency (ER) | payer SELFPAY ==
[2021-06-14 20:38] LABS: #Basophils 0.1 thou/uL (0.0-0.2); #Eosinphils 0.1 thou/uL (0.0-0.7); #Lymphocytes 3.6 thou/uL (1.20-3.40); #Monocytes 0.5 thou/uL (0.11-0.59); #Neutrophils 5.9 thou/uL (1.40-6.50); %Basophils 0.7 % (0.0-1.0); %Eosinophils 1.1 % (0.0-10.0); %Lymphocytes 35.4 % (21.0-51.0); %Monocytes 4.8 % (0.0-10.0); Hemoglobin 15.9 g/dL (12.0-16.0); Mean Corpuscular HGB CONC 33.7 g/dL (32.0-36.0); Mean Corpuscular Hemoglobin 31.4 pg (27.0-31.0); Mean Corpuscular Volume 93.2 fL (78.0-98.0); Mean Platelet Volume 7.8 fL (7.4-10.4); Platelet Count 332 thou/uL (130-400); RBC Distribution Width 12.3 % (11.5-14.5); Red Blood Cell (RBC) Count 5.07 mill/uL (4.20-5.40); White Blood Cell (WBC) Count 10.2 thou/uL (4.8-10.8)
[2021-06-14 20:41] LABS: Bacteria/HPF 1+ HPF (None Seen); Bilirubin Negative (Negative); Blood, Urine 3+ (Negative); Clarity Clear (Clear); Glucose, Urine (Dipstick) Normal (Negative); Ketone, Urine Trace mg/dL (Negative); Leukocyte 25 Leu/uL (Negative); Nitrite Negative (Negative); Protein, Urine (Dipstick) 10 mg/dL (Neg-Trace); Specific Gravity, Urine 1.024 (1.002-1.036); Urobilinogen Normal mg/dL (Less than 2); pH, Urine 5.5 (5.0-9.0)
[2021-06-14 20:51] LABS: BHCG - Serum Negative (NEGATIVE); Pregs Control Background? CLEAR/WHITE (CLR/WHITE); Pregs Control Bar Appear? YES (CONTROL BAR)
[2021-06-14 21:01] LABS: ALT (SGPT) 29 U/L (8-55); AST (SGOT) 20 U/L (5-34); Albumin 4.5 g/dL (3.5-5.0); Alkaline Phosphatase 96 U/L (40-110); Anion Gap 16 mmol/L (10-20); BUN (Urea Nitrogen) 10 mg/dL (7.0-18.7); Bilirubin, Total 0.6 mg/dL (0.2-1.2); Calc. Creatinine Clearance 0 mL/min (70-130); Calcium 9.8 mg/dL (7.8-10.44); Carbon Dioxide 22 mmol/L (22-29); Chloride 106 mmol/L (98-107); Globulin 3.3 g/dL (2.4-3.5); Glucose 100 mg/dL (70-105); Potassium 3.7 mmol/L (3.5-5.1); Protein, Total 7.8 g/dL (6.0-8.3); Sodium 140 mmol/L (136-145)
== END 2021-06-14 21:53 | disposition home or self-care (01) ==
LOC: ERS 19:35
DX: N93.8 Other specified abnormal uterine and vaginal bleeding (principal); N39.0 Urinary tract infection, site not specified; F17.210 Nicotine dependence, cigarettes, uncomplicated
CPT/HCPCS: 36415; 80053; 81003; 81015; 84703; 85025; 87086; 99284

== ENCOUNTER 2021-08-06 20:30 | Emergency (ER) | payer SELFPAY ==
[2021-08-06] MEDS ORDERED: Ketorolac Tromethamine 30 MG/ML VIAL ONE (21:06)
== END 2021-08-06 21:43 | disposition home or self-care (01) ==
LOC: ERS 20:30
DX: K05.00 Acute gingivitis, plaque induced (principal); K12.1 Other forms of stomatitis; I10 Essential (primary) hypertension; F17.210 Nicotine dependence, cigarettes, uncomplicated
CPT/HCPCS: 96372; 99283; J1885

== ENCOUNTER 2022-04-06 00:07 | Emergency (ER) | payer SELFPAY ==
[2022-04-06 00:52] LABS: #Basophils 0.1 thou/uL (0.0-0.2); #Eosinphils 0.2 thou/uL (0.0-0.7); #Lymphocytes 3.2 thou/uL (1.20-3.40); #Monocytes 0.7 thou/uL (0.11-0.59); #Neutrophils 7.4 thou/uL (1.40-6.50); %Basophils 0.9 % (0.0-1.0); %Eosinophils 1.4 % (0.0-10.0); %Lymphocytes 27.9 % (21.0-51.0); %Monocytes 5.7 % (0.0-10.0); %Neutrophils 64.1 % (42.0-75.0); Hemoglobin 14.9 g/dL (12.0-16.0); Mean Corpuscular HGB CONC 33.3 g/dL (32.0-36.0); Mean Corpuscular Hemoglobin 31.5 pg (27.0-31.0); Mean Corpuscular Volume 94.6 fL (78.0-98.0); Mean Platelet Volume 8.6 fL (7.4-10.4); Platelet Count 284 thou/uL (130-400); RBC Distribution Width 12.3 % (11.5-14.5); Red Blood Cell (RBC) Count 4.74 mill/uL (4.20-5.40); White Blood Cell (WBC) Count 11.5 thou/uL (4.8-10.8)
[2022-04-06 00:57] LABS: Bacteria/HPF None Seen HPF (None Seen); Bilirubin 2+ (Negative); Blood, Urine Negative (Negative); Clarity Clear (Clear); Glucose, Urine (Dipstick) Normal (Negative); Ketone, Urine Negative (Negative); Leukocyte Negative Leu/uL (Negative); Nitrite 2+ (Negative); Protein, Urine (Dipstick) Negative (Neg-Trace); RBC/HPF 0-3 HPF (0-3); Specific Gravity, Urine 1.012 (1.002-1.036); Squamous Epithelial 0-3 HPF (0-3); WBC/HPF 0-3 HPF (0-3)
[2022-04-06 01:04] LABS: Pregnancy Test - Urine (BHCG) Negative (Negative); Pregu Control Background? CLEAR/WHITE (CLR/WHITE); Pregu Control Bar Appear? YES (CONTROL BAR); Specific Gravity 1.012 (1.002-1.036)
[2022-04-06 01:12] LABS: ALT (SGPT) 16 U/L (8-55); AST (SGOT) 12 U/L (5-34); Albumin 4.3 g/dL (3.5-5.0); Alkaline Phosphatase 102 U/L (40-110); Anion Gap 14 mmol/L (10-20); BUN (Urea Nitrogen) 9 mg/dL (7.0-18.7); Bilirubin, Total 0.5 mg/dL (0.2-1.2); Calc. Creatinine Clearance 0 mL/min (70-130); Calcium 8.9 mg/dL (7.8-10.44); Carbon Dioxide 23 mmol/L (22-29); Chloride 106 mmol/L (98-107); Estimated GFR 102; Glucose 149 mg/dL (70-105); Potassium 3.9 mmol/L (3.5-5.1); Protein, Total 7.3 g/dL (6.0-8.3); Sodium 139 mmol/L (136-145)
[2022-04-06] MEDS ORDERED: Ondansetron ODT 4 MG TAB ONE (03:31)
== END 2022-04-06 03:35 | disposition home or self-care (01) ==
LOC: ERS 00:07
DX: D25.9 Leiomyoma of uterus, unspecified (principal); N39.0 Urinary tract infection, site not specified
CPT/HCPCS: 36415; 76856; 80053; 81003; 81015; 81025; 85025; 87086; 87480; 87510; 87660; Q0162

== ENCOUNTER 2022-04-08 23:48 | Emergency (ER) | payer SELFPAY ==
[2022-04-09] MEDS ORDERED: Mag-Al 1200 mg/1200 mg/30 ML UDCUP ONE (01:29)
[2022-04-09] MEDS ORDERED: Lidocaine Viscous Sol 2% 15 ml UD Cup ONE (01:29)
[2022-04-09] MEDS ORDERED: Dicyclomine 20 MG TAB ONE (01:50)
[2022-04-09 02:17] LABS: Bilirubin Negative (Negative); Blood, Urine 3+ (Negative); Clarity Clear (Clear); Glucose, Urine (Dipstick) Normal (Negative); Ketone, Urine Trace mg/dL (Negative); Leukocyte 75 Leu/uL (Negative); Nitrite Negative (Negative); Protein, Urine (Dipstick) Negative (Neg-Trace); Specific Gravity, Urine 1.008 (1.002-1.036); Urobilinogen Normal mg/dL (Less than 2); pH, Urine 6.5 (5.0-9.0)
[2022-04-09 02:18] LABS: Pregnancy Test - Urine (BHCG) Negative (Negative); Pregu Control Background? CLEAR/WHITE (CLR/WHITE); Pregu Control Bar Appear? YES (CONTROL BAR); Specific Gravity 1.008 (1.002-1.036)
[2022-04-09 02:30] LABS: Bacteria/HPF Rare-Few HPF (None Seen); Squamous Epithelial 0-3 HPF (0-3)
== END 2022-04-09 03:06 | disposition home or self-care (01) ==
LOC: ERS 23:48
DX: D25.9 Leiomyoma of uterus, unspecified (principal); R10.13 Epigastric pain; F17.210 Nicotine dependence, cigarettes, uncomplicated
CPT/HCPCS: 81003; 81015; 81025; 99284

== ENCOUNTER 2022-04-29 13:52 | Emergency (ER) | payer SELFPAY | END 2022-04-29 16:55 | disposition home or self-care (01) | LOC: ERS 13:52 | DX: T23.291A Burn of second degree of multiple sites of right wrist and hand, initial encounter (principal); X19.XXXA Contact with other heat and hot substances, initial encounter | CPT/HCPCS: 99283 ==